=== PATIENT | female | born 1995 | race African-American/Black ===

== ENCOUNTER 2017-10-12 22:34 | Emergency (ER) | payer SELFPAY ==
[~2017-10-12] VITALS: Ht 177.8 cm; Wt 72.7 kg
[2017-10-13 01:31] LABS: UCG SCREEN NEGATIVE
[2017-10-13 02:13] VITALS: BP 112/55
== END 2017-10-13 03:04 | disposition home or self-care (01) ==
LOC: ER 23:21
DX: F12.90 Cannabis use, unspecified, uncomplicated (principal); F41.9 Anxiety disorder, unspecified; R00.0 Tachycardia, unspecified
CPT/HCPCS: 81025; 93005; 99285; Z7610